=== PATIENT | female | born 1955 | race Caucasian/White ===

== ENCOUNTER 2024-09-15 10:05 | Outpatient (REF) | payer MEDICARE, MEDICAID, SELFPAY | END 2024-09-15 10:06 | disposition home or self-care (01) | LOC: HO.HOSX 10:05 | DX: Z13.89 Encounter for screening for other disorder (principal) ==

== ENCOUNTER 2024-09-16 08:49 | Outpatient (REF) | payer MEDICARE, MEDICAID, SELFPAY ==
--- NOTE | ~2024-09-16 | XR_ITS ---
CLINICAL HISTORY: M79.642 - Pain in left hand 4 view left hand Comparison: None Findings: Bones intact. No dislocations. Periarticular osteophyte formation at the interphalangeal joints of the digits. 1st carpometacarpal joint arthroplasty. No erosions. No radiopaque foreign body. IMPRESSION: 1. No acute findings This document has been electronically signed by: Maryann Castillo MD on 09/16/2024 20:50:46
--- NOTE | ~2024-09-16 | XR_ITS ---
CLINICAL HISTORY: M79.641 - Pain in right hand 4 view right hand Comparison: None Findings: No fractures or dislocations. 1st carpometacarpal joint arthroplasty. No erosions. No radiopaque foreign body. IMPRESSION: 1. No acute findings This document has been electronically signed by: Maryann Castillo MD on 09/16/2024 19:36:16
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
--- OUTSIDE RECORDS SUMMARY | 2024-09-17 09:17 | XMS_ITS | Clinical Summary ---
Author Organization [address] [facility] Address [address] [place] [address] Phone Care Team Providers Care Director Medical Surgical Name Role Phone Vivian Hoffman [employer] Primary Care Provider [phone] Allergies No known active allergies Medications Trelegy Ellipta 100-62.5-25 mcg inhaler TAKE 1 PUFF BY MOUTH EVERY DAY 60 each 5 5 Active Trelegy Ellipta 100-62.5-25 mcg inhaler Inhale 1 puff (100 mcg total) by mouth 1 (one) time each day. 5 Active lamoTRIgine (LaMICtal) 25 mg tablet 1 tablet (25 mg total). 4 Active ipratropium (ATROVENT) 21 mcg (0.03 %) nasal spray USE 1-2 SPRAYS INTO EACH NOSTRIL 3 TIMES A DAY 4 Active citalopram (CeleXA) 20 mg tablet take 1 1/2 tablets (30 mg) by mouth daily Active albuterol 2.5 mg /3 mL (0.083 %) nebulizer solution USE 1 VIAL VIA NEBULIZER EVERY 4 HOURS NEEDED FOR WHEEZING Active albuterol HFA (PROAIR HFA ; PROVENTIL HFA ; VENTOLIN HFA) 90 mcg/actuation inhaler Inhale 2 puffs by mouth. 2 Active naproxen (NAPROSYN) 500 mg tablet Take 1 tablet (500 mg total) by mouth 2 (two) times a day with meals. 4 Active Encounters Date Type Department Care Team Description 07/15/2024 3:45 PM EST Office Visit Pulmonolgy - [facility] [address] [facility] [address] [place] [address] Arvind Jean MD Chronic obstructive pulmonary disease, unspecified COPD type (CMS/HCC) (Primary Dx) from Last 3 Months Immunizations Name Administration Dates Next Due Moderna SARS-CoV-2 COVID-19, mRNA, LNP-S, preservative free 08/29/2020,08/01/2020 Surgical History Surgery Date Site/Laterality Comments BELT ABDOMINOPLASTY 2008 PROCEDURE: HISTORICAL TUMMY TUCK OTHER SURGICAL HISTORY 2009 PROCEDURE: IMPLANT BREAST SILICONE/EQ SECTION PROCEDURE: HISTORICAL DELIVERY APPENDECTOMY PROCEDURE: HISTORICAL APPENDECTOMY ORTHOPEDIC SURGERY PROCEDURE: HISTORICAL ORTHOPEDIC SURGERY BREAST BIOPSY Left PROCEDURE: BX BREAST; PERC NEEDLE CORE W/IMAG GUID; COMMENT: aspiration prior to getting implants Medical History Medical History Date Comments Asthma DX:Asthma Depression DX:Depression Anxiety DX:Anxiety History of PSVT (paroxysmal supraventricular tachycardia) 05/02/2018 DX:History of PSVT (paro xysmal supraventricular tachycardia) RANDAL positive 05/02/2018 DX:RANDAL positive History of hepatitis B 05/02/2018 DX:Histor y of hepatitis B Arthritis 05/02/2018 DX:Arthritis Mild intermittent asthma wit hout complication 05/02/2018 DX:Mild intermittent asthma without complication Family History Medical History Relation Name Comments Lung cancer Brother 1 No Known Problems Brother 2 Diabetes Mother No Known Problems Sister Relation Name Status Comments Brother 1 Brother 2 Alive Father Mother Sister Alive Social History Tobacco Use Types Packs/Day Years Used Date Smoking Tobacco: Former Smokeless Tobacco: Never Alcohol Use Standard Drinks/Week Comments Yes 1 (1 standard drink = 0.6 oz pur e alcohol) Comments Unknown Sex and Gender Information Value Date Recorded Sex Assigned at Not on file Legal Sex Female 6:48 PM EST Gender Identity Not on file Sexual Orientation Not on file Obstetrics History Last Filed Vital Signs Vital Sign Reading Time Taken Comments Blood Pressure 120/60 07/15/2024 4:02 PM EST Pulse 67 07/15/2024 4:02 PM EST Temperature 36.4 ??C (97.6 ??F) 07/15/2024 4:02 PM ES T Respiratory Rate 20 07/15/2024 4:02 PM EST Oxygen Saturation 92% 07/15/2024 4:02 PM EST Inhaled Oxygen Concentration - - Weight 54.4 kg (120 lb) 07/15/2024 4:02 PM EST Height 160 cm (5' 3 ) 07/15/2024 4:02 PM EST Body Mass Index 21.26 07/15/2024 4:02 PM EST Plan of Treatment Upcoming Encounters Date Type Department Care Team (Late st Contact Info) Description 07/18/2025 9:45 AM EST Office Visit Pulmonolgy - [facility] [address] [facility] [address] [place] [id number] Arvind Jean MD [address] [facility] [address] [place] [address] Health Maintenance Due Date Last Done Comments Hepatitis A Vaccines (1 of 2 - Risk 2-dose series) 1972 Hepatitis B Vaccines (1 of 3 - Risk 3-dose series) 2013 Colorectal Cancer Screening: Colonoscopy 05/28/2022 Falls Risk Assessment 05/28/2022 Hepatitis C Screening 05/28/2022 Medicare Annual Wellness Visit 05/28/2022 Osteoporosis Screening (Bone Density Screening) 05/28/2022 Social Influencers of Health Screening 05/28/2022 Cervical Cancer Screening: Pap Smear 12/01/2023 11/30/2022, 06/03/2020, 05/20/2019 COVID-19 Vaccine ( season) 2024 06/02/2021, 08/29/2020, 08/01/2020 Influenza Vaccine (#1) 2024 08/07/2017 Breast Cancer Screening 12/27/2024 12/27/2022 Depression Screening 06/28/2025 06/28/2024 Cholesterol Screening (Lipid Panel) 11/20/2028 11/21/2023, 11/21/2023, 12/30/2021, Additional history exists DTaP,Tdap,and Td Vaccines (2 - Td or Tdap) 03/28/2029 03/28/2019 Pneumococcal Vaccine: 50+ Years Completed 07/24/2020, 03/28/2019 Zoster Vaccines Completed 02/11/2021, 11/06/2020 RSV Immunization Patients 60+ Years Old Completed 06/13/2023 HIB Vaccines Aged Out No longer eligi ble based on patient's age to complete this topic HPV Vaccines Aged Out No longer eligi ble based on patient's age to complete this topic IPV Vaccines Aged Out No longer eligi ble based on patient's age to complete this topic MMR Vaccines Aged Out No longer eligi ble based on patient's age to complete this topic Meningococcal ACWY Vaccine Aged Out N o longer eligible based on patient's age to complete this topic Meningococcal B Vacine Aged Out No lo nger eligible based on patient's age to complete this topic RSV Immunization Patients Under 20 months Aged Out No longer eligible based on patient's age to complete this topic Varicella Vaccines Aged Out No longer eligible based on patient's age to complete this topic Procedures Procedure Name Priority Date/Time Associated Diagnosis Comments DIAGNOSTIC MAMMOGRAPHY INCLUDING CAD BILATERAL Routine 12/27/2022 3:20 PM EDT Encounter for gynecological examination (general) (routine) without abnormal findings Encounter for other screening for malignant neoplasm of breast Breast implant status PAP SMEAR Routine 11/30/2022 from Last 3 Months or Most Recently Relevant to Health Maintenance Results * DIAGNOSTIC MAMMOGRAPHY INCLUDING CAD BILATERAL (12/27/2022 3:20 PM EDT) Anatomical Region Laterality Modality Mammography 11/30/2022 2:58 PM EDT Narrative 12/27/2022 4:30 PM EDT This is a summary report. The complete report is available in the patient's medical record. If you cannot access the medical record, please contact the sending organization for a detailed fax or copy. Exam: Diagnostic mammogram and right breast ultrasound History: Palpable right breast lump at the 2-3 o'clock position 6 cm from the nipple. ??Possible deformed implant. ??History of bilateral saline implants in 2009. ??History of a benign left excisional biopsy in 1998. Comparison: Mammography 04/09/2021 and as far back as 02/23/2012 Findings: Bilateral full-field digital diagnostic mammography was performed with tomosynthesis and interpreted with computer-aided detection. ??Implant and implant displaced views performed. Breast parenchyma is composed of scattered fibroglandular densities. ??No new suspicious mass, architectural distortion, or suspicious calcifications. ??Bilateral saline implants are intact and have similar appearance to the prior exam. Patient delineated the palpable right breast lump at the 2 o'clock position, 6 cm from the nipple. ??Sonography shows no solid or cystic lesion. Impression: No mammographic or sonographic correlate for the palpable right breast lump. ??Bilateral intact saline implants which have stable appearance. ??Further management of the palpable abnormality should be clinically based. No new mammographic evidence of malignancy in either breast. BI-RADS 2-benign Procedure Note Edie Pichardo MD - 07/25/2023 This is a summary report. The complete report is available in thepatient's medical record. If you cannot access the medical record, pleasecontact the sending organization for a detailed fax or copy. Exam: Diagnostic mammogram and right breast ultrasound History: Palpable right breast lump at the 2-3 o'clock position 6 cm fromthe nipple. Possible deformed implant. History of bilateral salineimplants in 2009. History of a benign left excisional biopsy in 1998. Comparison: Mammography 04/09/2021 and as far back as 02/23/2012 Findings: Bilateral full-field digital diagnostic mammography was performed withtomosynthesis and interpreted with computer-aided detection. Implant andimplant displaced views performed. Breast parenchyma is composed of scattered fibroglandular densities. Nonew suspicious mass, architectural distortion, or suspiciouscalcifications. Bilateral saline implants are intact and have similarappearance to the prior exam. Patient delineated the palpable right breast lump at the 2 o'clockposition, 6 cm from the nipple. Sonography shows no solid or cysticlesion. Impression: No mammographic or sonographic correlate for the palpable right breastlump. Bilateral intact saline implants which have stable appearance.Further management of the palpable abnormality should be clinicallybased. No new mammographic evidence of malignancy in either breast. BI-RADS 2-benign Sol Alejo CNM IMG BI PROCEDURES Final Resul t * Pap smear (11/30/2022) 11/30/2022 Narrative HISTORICAL TESTING LAB RESULTING AGENCY - 12/09/2022 10:40 AM EDT [id number] THINPREP PAP, IMAGED: RARE ATYPICAL SQUAMOUS CELLS OF UNDETERMINED SIGNIFICANCE (ASCUS) . CHELSEA KENNEDY(ASCP) (CASE SCREENED 12 08 2022) AMMY COPELAND M.D. , PATHOLOGIST (CASE ELECTRONICALLY SIGNED 12 09 2022) RESULT OF APTIMA HIGH RISK HPV ASSAY: HIGH RISK HPV: ??POSITIVE (SEROTYPES 16,18,31,33,35,39,45,51,52,56,58,59,66,68) RESULTS OF APTIMA HPV 16 AND 18/45 GENOTYPE ASSAY: HPV 16: ??NEGATIVE HPV 18/45: ??NEGATIVE COMPLETED ON 2022-12-05 ADEQUACY: SATISFACTORY ENDOCERVICAL/TRANSFORMATION ZONE COMPONENT PRESENT. SOURCE: THINPREP PAP HPV ANY DX: ??REFLEX 16 AND 18, CERVICAL, IMAGED CLINICAL INFORMATION: HPV ANY DIAGNOSIS. MENOPAUSE, PAP HX 05/20/2019 PAP SMEAR ASC-H HR HPV, 07/16/19 - COLPO BX NEG, PLAN REPEAT PAP IN 1 YR, 05/2020 PAP ??- NEG CYTOLOGY, + HPV, [[id number]] Sol Alejo [facility] CYTOLOGY ORDERABLES Final Result HISTORICAL TESTING LAB RESULTING AGENCY from Last 3 Months or Most Recently Relevant to Health Maintenance Insurance MEDICAID - [place] [employer] MEDICARE ADVANTAGE Care Teams Director Medical Surgical Relationship Specialty Start Date End Date Vivian Hoffman NP [facility] [place] [address] PCP - General Family Medicine 11/17/21
--- OUTSIDE RECORDS SUMMARY | 2024-09-17 09:17 | XMS_ITS | Clinical Summary ---
Author Organization [facility] Address [address] [place] [address] Care Team Providers Care Photo Intern Name Role Phone Vivian Hoffman [facility] Primary Care Provider [phone] Source Comments PLEASE NOTE, if this patient is a minor, it may be UNLAWFUL to discuss sensitive information that is contained in these records (such as FAMILY PLANNING, MENTAL HEALTH or SUBSTANCE ABUSE) with the minor patient's parent or other person without the patient's specific authorization.[facility] Allergies No known active allergies Medications nebulizer and compressorIndica tions:COPD exacerbation ([facility]) Use with duoneb solution. Lifetime use: COPD exacerbation ([facility]) [J44.1] 1 Each 2 Active nebulizer accessoriesIndic ations:COPD exacerbation ([facility]) Use with duoneb solution. Lifetime use: COPD exacerbation ([facility]) [J44.1] 1 Each 11 2 Active citalopram (CELEXA) 20 mg tabletIndication s:Anxiety and depression TAKE 1 TABLET BY MOUTH EVERY DAY FOR DEPRESSION 90 Tablet 1 3 Active albuterol (PROVENTIL) 2.5 mg /3 mL (0.083 %) nebulizer solutionIndicati ons:Chronic obstructive pulmonary disease, unspecified COPD type ([facility]) USE 1 VIAL VIA NEBULIZER EVERY 4 HOURS NEEDED FOR WHEEZING 50 Each 2 4 Active fluticasone-umec lidinum-vilanter ol (TRELEGY ELLIPTA) 100-62.5-25 mcg inhalerIndicatio ns:Chronic obstructive pulmonary disease, unspecified COPD type ([facility]) Inhale 1 Puff into the lungs daily. 60 Each 2 4 Active sucralfate (CARAFATE) 100 mg/mL suspensionIndica tions:Epigastric pain Take 10 mL by mouth 4 (four) times daily before meals and nightly 414 mL 1 4 Active calcium carbonate-vitami n D3 500 mg-10 mcg (400 unit) tabletIndication s:Osteopenia, unspecified location Take 1 Tablet by mouth 2 (two) times daily For bone 60 Tablet 5 4 Active traMADoL (ULTRAM) 50 mg tabletIndication s:RUQ pain Take 1 Tablet by mouth every 8 (eight) hours as needed for pain 20 Tablet 4 Active meloxicam (MOBIC) 15 mg tabletIndication s:Joint pain in fingers of right hand TAKE 1 TABLET BY MOUTH EVERY DAY NEEDED FOR PAIN 30 Tablet 2 4 Active traZODone (DESYREL) 100 mg tabletIndication s:Primary insomnia TAKE 1 TABLET BY MOUTH NIGHTLY AT BEDTIME NEEDED FOR SLEEP 90 Tablet 1 5 Active mirabegron ER (MYRBETRIQ) 25 mg [id number]: Mixed incontinence Take 1 Tablet by mouth once daily For urine incontinence 30 Tablet 2 5 Active Active Problems Problem Noted Date Diagnosed Date Inflammation of sacroiliac joint ([facility] V24) 06/28/2024 Supraventricular tachycardia ([facility]) 5 Tremors of nervous system 06/28/2024 Pancreatic duct dilated ([facility]) 02/18/2024 Overview (06/28/2024): -pancreatic duct dilation: Saw vero Barker on 02/2024, recc no txt for now. Redo CT scan of abdomen or MRCP in 1 year (around 02/2025): for surveillance. Fibroid uterus 02/10/2022 Overview (02/10/2022): 02/02/2022: Ct of abd at [facility]: FINDINGS: [...] were followed. Granuloma of liver 06/19/2021 Overview (11/23/2023): 09/19/2022: [facility]: per GI note: Impression and [...] Follow up as necessary. Osteopenia 05/25/2021 Overview (05/25/2021): 04/09/2021: [facility]: Bone desity: osteopenia. COPD (chronic obstructive pulmonary disease) ( [facility]) 03/30/2019 Overview (03/17/2022): Had PFT on 2021: showed COPD. Mixed incontinence 03/07/2018 History of PSVT (paroxysmal supraventricular tachycardia) w/ ablation 11/16/2017 Overview (11/16/2017): Per records from [facility] Dr. Jane 03/26/13 - 48-hr Holter monitor: predominantly NSR, episodes of sinus tachy & clayton, isolated VF, Svt max 5 beats, no vtach no sinus pauses RANDAL positive 11/15/2017 Overview (11/16/2017): 04/07/14 RANDAL positive 1:1280 speckled pattern 05/09/14 - RANDAL neg 04/15/16 - RANDAL positive 1:160 speckled 11/04/16 - RANDAL negative 04/21/17 - CCP positive; RANDAL neg 08/28/17 - RANDAL positive 1:80 (low Ab level), Homogeneous History of hepatitis B 10/07/2017 Primary osteoarthritis involving multiple joints 10/06/2017 Overview (09/09/2018): 09/03/18 - Evaluated by Rheum Dr. Garcia. Pt has degenerative OA in multiple joint, most bothersome in the hands. She doesn't have RA and her RF and CCP were negative in Jul 2017. Can try Tylenol 650 mg PRN pain. F/U PRN. Anxiety and depression 10/06/2017 Mild intermittent asthma without complication ([facility]) 10/06/2017 Overview (11/16/2017): 04/21/17 - PFTS = moderately severe obstruciton Osteoarthritis of right knee Resolved Problems Problem Noted Date Diagnosed Date Resolved Date Hepatitis B 10/06/2017 10/07/2017 Encounters Date Type Department Care Team Description 06/28/2024 9:00 AM EST Office Visit [address] [address] Vivian Hoffman, ALLEGRA Tremors of nervous system (Primary Dx); Memory problem; Blurred vision, bilateral; Mixed incontinence; Pancreatic duct dilated; Chronic obstructive pulmonary disease, unspecified COPD type ([facility]); History of tobacco use 06/28/2024 Travel from Last 3 Months Immunizations Immunization Administration Dates Next Due Flu, Preservative Free 08/07/2017 Moderna COVID-19 Vaccine, re d cap blue label, 12+ Primary Series 06/02/2021,08/29/2020,08/01/2020 PNEUMOCOCCAL CONJUGATE PCV 13 03/28/2019 PNEUMOCOCCAL POLYSACCHARIDE PPV23 07/24/2020 RSV (Arexvy), Recombinant, P rotein Subunit Rsvpref, Adjuvant Reconstituted, 0.5 Ml, Pf 06/13/2023 TDAP 03/28/2019 ZOSTER VACCINE, RECOMBINANT (SHINGRIX) ,11/06/2020 Family History Medical History Relation Name Comments Cancer Brother lung cancer dec eased 50's Cancer Father prostate? Alzheimer's Disease Maternal Grandmother Diabetes Mother Psoriasis Mother Diabetes Sister Relation Name Status Comments Brother lung cancer Father prostate cancer Maternal Grandmother Mother hepatitis B Sister Alive Social History Tobacco Use Types Packs/Day Years Used Date Smoking Tobacco: Former Cigarettes 2 15 1 985 - 1999 Smokeless Tobacco: Never Tobacco Cessation:Counseling Given: Not Answered Alcohol Use Standard Drinks/Week Comments Yes 0 (1 standard drink = 0.6 oz pur e alcohol) sometimes Social Connections Answer Date Recorded Connectedness 0 02/29/2024 Financial Resource Strain Answer Date R ecorded Financial Resource Strain 0 2018 Stress Answer Date Recorded Stress 0 02/05/2019 Physical Activity Answer Date Recorded Physical Activity 0 02/05/2019 Food Insecurity Answer Date Recorded Food 0 03/14/2024 Transportation Needs Answer Date Record ed Transportation 0 02/05/2019 Housing Stability Answer Date Recorded Housing 0 02/05/2019 Safety and Environment Answer Date Emory rded Safety 0 02/05/2019 Utilities Answer Date Recorded Utilities 0 02/05/2019 Employment Answer Date Recorded Stress 0 02/29/2024 Comments No Sex and Gender Information Value Date Recorded Sex Assigned at Female 10/03/2017 6:35 AM PDT Legal Sex Female 11:47 AM PDT Gender Identity Female 10/03/2017 6:35 AM PDT Sexual Orientation Straight 10/06/2017 6: 32 AM PDT 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 Not on file Not on file Last Filed Vital Signs Vital Sign Reading Time Taken Comments Blood Pressure 108/62 06/28/2024 8:59 AM EST Pulse 60 06/28/2024 8:59 AM EST Temperature 36.5 ??C (97.7 ??F) 06/28/2024 8:59 AM ES T Respiratory Rate 16 06/28/2024 8:59 AM EST Oxygen Saturation 98% 02/28/2024 2:09 PM EDT Inhaled Oxygen Concentration - - Weight 53.5 kg (118 lb) 02/28/2024 2:09 PM EDT Height 157.5 cm (5' 2 ) 02/28/2024 2:09 PM EDT Body Mass Index 21.58 02/28/2024 2:09 PM EDT Plan of Treatment Upcoming Encounters Date Type Department Care Team (Late st Contact Info) Description 09/27/2024 9:00 AM EDT [facility] Visit [facility] [address] [place] [address] Clare Ramirez PA-C [address] [place] [address] Health Maintenance Due Date Last Done Comments Dental Perio Charting [address] CT Colonography 1998 FIT/gFOBT 1998 Fecal DNA 1998 Flexible Sigmoidoscopy 1998 Dental Prophy 10/20/2022 10/18/2021 [id number] ( season) 2024 06/02/2021, 08/29/2020, 08/01/2020 Depression Monitoring 09/26/2024 06/28/2024 , 02/28/2024, 11/25/2021, Additional history exists Falls Prevention 11/20/2024 11/21/2023, 11/06/2020 Medicare Annual Wellness Visit 11/20/2024 0 11/21/2023, 11/06/2020, 03/28/2019 Hypertension Screening (#1) 06/28/2025 Tobacco Screening 06/28/2025 06/28/2024 Breast Cancer Screening (Mammogram) 12/10/2025 12/11/2023, 04/09/2021, 06/05/2017 Diabetes Screening 11/20/2026 11/21/2023, 0 11/21/2023, 12/30/2021, Additional history exists Lipid Screening 11/20/2028 11/21/2023, 12/17, 12/03/2020 Imm-DTaP/Tdap/Td (2 - Td or Tdap) 03/28/2029 019 Colonoscopy 03/10/2032 03/10/2022, 03/10/2022 Colorectal Cancer Screening 03/10/2032 Imm-Influenza Discontinued 08/07/2017 Hepatitis C Screening Completed 03/28/2019 Imm-Pneumococcal 65+ Completed 07/24/2020, 03/28/20 Imm-Zoster, Recombinant Completed 02/11/2021, 11/06 Bone Density Screening Completed 04/09/2021 Alcohol and Drug Screen Completed 06/28/19, 02/28/2024, 11/25/2021, Additional history exists Procedures Procedure Name Priority Date/Time Associated Diagnosis Comments HEALTH HISTORY SCANNED DOCUMENT 07/11/2024 3:00 AM EST RFLX - REFLEXIVE URINE CULTURE Routine 06/28/2024 9:56 AM EST C TRACHOMATIS/N GONORRHOEAE RNA,TMA Routine 06/28/2024 9:56 AM EST Mixed incontinence URINALYSIS, COMPLETE W/REFLEX TO CULTURE Routine 06/28/2024 9:56 AM EST Mixed incontinence REFERRAL FOR MAMMOGRAM Routine 12/11/2023 3:00 AM EDT Breast cancer screening by mammogram HGBA1C W/MPG Routine 11/21/2023 4:30 PM EDT Routine general medical examination at a health care facility Non-seasonal allergic rhinitis, unspecified trigger LIPID PANEL Routine 11/21/2023 4:30 PM EDT Routine general medical examination at a health care facility Non-seasonal allergic rhinitis, unspecified trigger HISTORIC COLONOSCOPY 03/10/2022 3:00 AM EDT Full PROPHYLAXIS - ADULT Routine 10/18/2021 2:20 PM EDT Gingivitis, chronic, plaque induced REFERRAL FOR BONE DENSITY TESTING Routine 04/09/2021 3:00 AM EDT Screening for osteoporosis HEPATITIS A,B,C PANEL Routine 03/28/2019 4:34 PM EDT Need for hepatitis C screening test from Last 3 Months or Most Recently Relevant to Health Maintenance Results * HEALTH HISTORY SCANNED DOCUMENT (07/11/2024 3:00 AM EST) 07/11/2024 3:00 AM EST [facility] Provider Default SCAN OTHER ORDERS Final Re sult * C TRACHOMATIS/N GONORRHOEAE RNA,TMA (06/28/2024 9:56 AM EST) CHLAMYDIA TRACHOMATIS RNA, TMA NOT DETECTED NOT DETECTED [email or web address] [facility] NEISSERIA GONORRHOEAE RNA, TMA NOT DETECTED NOT DETECTED [email or web address] [facility] COMMENT [email or web address] [facility] Urine Urine specimen / Unknown 06/28/2024 9:56 AM EST 06/28/2024 9:57 AM EST Narrative [email or web address] [facility] - 06/29/2024 7:53 PM EST FASTING:NO The analytical performance characteristics of this assay, when used to test SurePath(TM) specimens have been determined by [employer]. The modifications have not been cleared or approved by the FDA. This assay has been validated pursuant to the CLIA regulations and is used for clinical purposes. For additional information, please refer to https://education.Kids Movie/faq/EQC176 (This link is being provided for information/ educational purposes only.) Vivian Hoffman [facility] - NO BLOOD DRAW Final Resu lt [email or web address] [address] [address], [email or web address] [address] * URINALYSIS, COMPLETE W/REFLEX TO CULTURE (06/28/2024 9:56 AM EST) COLOR YELLOW YELLOW [email or web address] [facility] APPEARANCE CLEAR CLEAR [email or web address] [facility] SPECIFIC GRAVITY 1.023 1.001 - 1.035 [email or web address] [facility] URINE PH 6.5 5.0 - 8.0 [email or web address] [facility] GLUCOSE NEGATIVE NEGATIVE [email or web address] [facility] BILIRUBIN NEGATIVE NEGATIVE [email or web address] [facility] KETONES NEGATIVE NEGATIVE [email or web address] [facility] OCCULT BLOOD NEGATIVE NEGATIVE [email or web address] [facility] URINE PROTEIN NEGATIVE NEGATIVE [email or web address] [facility] NITRITE NEGATIVE NEGATIVE [email or web address] [facility] LEUKOCYTE ESTERASE NEGATIVE NEGATIVE [email or web address] [facility] URINE LEUKOCYTES NONE SEEN < OR = 5 [id number] [facility] RBC NONE SEEN < OR = 2 [id number] [facility] SQUAMOUS EPITHELIAL CELLS NONE SEEN < OR = 5 [email or web address] [facility] BACTERIA NONE SEEN NONE SEEN [facility] HYALINE CAST NONE SEEN NONE SEEN [email or web address] [facility] SEE NOTE See Below [email or web address] [facility] Comment: This urine was analyzed for the presence of WBC, RBC, bacteria, casts, and other formed elements. Only those elements seen were reported. Urine Urine specimen / Unknown 06/28/2024 9:56 AM EST 06/28/2024 9:57 AM EST Narrative [email or web address] [facility] - 06/29/2024 7:53 PM EST FASTING:NO Viivan [facility] - NO BLOOD DRAW Edited Res ult - Final Performing Organization Address [facility] de Phone Number [email or web address] [address] [address], [email or web address] [address] * RFLX - REFLEXIVE URINE CULTURE (06/28/2024 9:56 AM EST) REFLEXIVE URINE CULTURE See Below [facility] Comment:NO CULTURE INDICATED 06/28/2024 9:56 AM EST 06/28/2024 9:57 AM EST Narrative [email or web address] [facility] - 06/29/2024 7:53 PM EST FASTING:NO Vivian [facility] - NO BLOOD DRAW Edited Res ult - Final Performing Organization Address [facility] Co de Phone Number [email or web address] [address] [address], [email or web address] [address] * REFERRAL FOR MAMMOGRAM (12/11/2023 3:00 AM EDT) 12/11/2023 3:00 AM EDT Vivian DEANP IMG RFL MAMMO Edited Result - Final * HGBA1C W/MPG (11/21/2023 4:30 PM EDT) Pathologist [facility] HEMOGLOBIN A1C 5.4 <5.7 % of total Hgb [facility] Comment: For the purpose of screening for the presence of diabetes: <5.7% ? Consistent with the absence of diabetes 5.7-6.4% ?Consistent with increased risk for diabetes ?(prediabetes) > or =6.5% ??Consistent with diabetes This assay result is consistent with a decreased risk of diabetes. Currently, no consensus exists regarding use of hemoglobin A1c for diagnosis of diabetes in children. According to [place] Diabetes Association (ADA) guidelines, hemoglobin A1c <7.0% represents optimal control in non- diabetic patients. Different metrics may apply to specific patient populations. Standards of Medical Care in Diabetes(ADA). ?? MEAN PLASMA GLUCOSE 115 mg/dL (calc) [facility] Blood Blood / Unknown 11/21/2023 4 :30 PM EDT 11/21/2023 4:30 PM EDT Vivian DEAN[facility] LAB - BLOOD DRAW Edited Result - Final opinions.h [address] [place] [id number], [facility] [address] [place] [phone] * (ABNORMAL) LIPID PANEL (11/21/2023 4:30 PM EDT) Pathologist [facility] CHOLESTEROL, TOTAL 177 <200 mg/dL [facility] HDL CHOLESTEROL 60 > OR = 50 mg/dL [facility] TRIGLYCERIDES 80 <150 mg/dL [facility] LDL-CHOLESTEROL 100(H) 99 mg/dL (calc) [facility] Comment: Reference range: <100 Desirable range <100 mg/dL for primary prevention; ?? <70 mg/dL for patients with CHD or diabetic patients with > or = 2 CHD risk factors. LDL-C is now calculated using the Kumar-Caldwell calculation, which is a validated novel method providing better accuracy than the Friedewald equation in the estimation of LDL-C. Kumar SS et al. ANNETTE. 2013;310(49): 8899-0127 (http://education.Automated Insights/faq/LTQ006) CHOL/HDLC RATIO 3.0 <5.0 (calc) [facility] NON-HDL CHOLESTEROL 117 <130 mg/dL (calc) [facility] [employer] Comment: For patients with diabetes plus 1 major ASCVD risk factor, treating to a non-HDL-C goal of <100 mg/dL (LDL-C of <70 mg/dL) is considered a therapeutic option. Blood Blood / Unknown 11/21/2023 4 :30 PM EDT 11/21/2023 4:30 PM EDT Vivian DIN[facility] LAB - BLOOD DRAW Final Result [email or web address] [address] [address], [email or web address] [address] * HISTORIC COLONOSCOPY (03/10/2022 3:00 AM EDT) 03/10/2022 3:00 AM EDT Shannan Mc PA-C PROCEDURES Final Res ult * REFERRAL FOR BONE DENSITY TESTING (04/09/2021 3:00 AM EDT) 04/09/2021 3:00 AM EDT Vivian DINH IMG RFL DXA Edited Result - Final * (ABNORMAL) HEPATITIS A,B,C PANEL (03/28/2019 4:34 PM EDT) HEPATITIS B SURFACE ANTIBODY NEGATIVE NEGATIVE [facility] HEPATITIS B SURFACE ANTIGEN NEGATIVE NEGATIVE [facility] Comment: Over the counter supplements containing high doses of biotin may interfere with this assay. ??If interference is suspected, patients shoud be retested after refraining from biotin supplements for 72 hours. HEPATITIS C VIRUS DIAGNOSTIC NEGATIVE NEGATIVE [facility] HEPATITIS B CORE ANTIBODY NEGATIVE NEGATIVE [facility] HEPATITIS A ANTIBODY TOTAL POSITIVE(A) NEGATIVE [facility] Comment: Over the counter supplements containing high doses of biotin may interfere with this assay. ??If interference is suspected, patients shoud be retested after refraining from biotin supplements for 72 hours. Blood specimen (specimen) Blood / Unknown 03/28/2019 4:34 PM EDT 03/28/2019 4:42 PM EDT Narrative [facility] - 03/28/2019 7:45 PM EDT [employer] [address] Jewel Staker - Giuliana Partida MD PT ID [id number] ORD# [id number] Shannan Mc PA-C LAB - BLOOD DRAW Edited R esult - Final [address] [address], [place] [phone] from Last 3 Months or Most Recently Relevant to Health Maintenance Insurance AETNA MEDICARE AETNA [facility] [place] Care Teams Photo Intern Relationship Specialty Start Date End Date Vivian Hoffman FNP [address] [place] [id number] PCP - General Internal Medicine 08/20/19
== END 2024-09-16 08:50 | disposition home or self-care (01) ==
LOC: HO.HOSX 08:49
DX: M79.641 Pain in right hand (principal); M79.642 Pain in left hand; M19.041 Primary osteoarthritis, right hand; M19.042 Primary osteoarthritis, left hand
CPT/HCPCS: 73130; 99202

== ENCOUNTER 2024-09-16 08:58 | Outpatient (AMB) | payer MEDICARE, MEDICAID, SELFPAY ==
--- NOTE | 2024-09-16 09:08 | MHC.OFFVIS ---
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 States her right is worse. States pain is mostly in her thumb, index and middle finger. Describes pain as constant, and gets better when she sits on her hands and puts her hands by the heater. She is currently taking celebrex which was RX by her PCP Dr Westfall. States her index finger at times turns white and goes numb. Denies locking of any finger. EMG done many years ago. 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 States her right is worse. States pain is mostly in her thumb, index and middle finger. Describes pain as constant, and gets better when she sits on her hands and puts her hands by the heater. She is currently taking celebrex which was RX by her PCP Dr Westfall. States her index finger at times turns white and goes numb. Denies locking of any finger. EMG done many years ago. Hx of CTR ( doesn't recall which hand it was). No active numbness or tingling at this time. 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 Neuro: Normal sensation of the tips of all digits of the bilateral hands at this time Vascular: Cap refill brisk Pain: No tenderness to palpation of the PIP, DIP joints of the fingers of bilateral hands Patient does report pain in these areas with range of motion of bilateral hands, worst in the index and middle fingers of the right hand ROM: Patient was able to make a closed fist and extend all digits of bilateral hands fully Skin: No lacerations or abrasions. General: No ecchymosis, erythema, or evidence of infection. Psych: Appears grossly normal Affect normal Attitude cooperative Results Reviewed Results Reviewed: X-rays obtained in the office today and independently reviewed by me, Rj Brown PA-C, demonstrate moderate degenerative changes of the DIP and PIP joints of bilateral hands consistent with osteoarthritis. Assessment & Plan Assessment & Plan (1) Arthritis of finger of both hands: Code(s): M19.041 - Primary osteoarthritis, right hand; M19.042 - Primary osteoarthritis, left hand Category: Medical Plan 1. osteoarthritis of the IP and PIP joints of bilateral hands Patient was educated about this condition Patient is educated about the treatment options available At this time, patient states she would like to proceed with conservative management with occupational therapy, conservative pain management measures Patient states she is not interested in injections or any surgical intervention at this time If conservative management measures prove ineffective, patient can call us for reassessment and discussion of potential injection or surgical intervention if indicated Patient will follow-up as needed with any acute concerns Orders: Orders XR hand LT min 3V Today M79.642 - Pain in left hand XR hand RT min 3V Today M79.641 - Pain in right hand OT Evaluation and Treatment Today M19.041 - Primary osteoarthritis, right hand, M19.042 - Primary osteoarthritis, left hand Coding Level of Care Code New Pt Level 3 (19748) Diagnoses Arthritis of finger of both hands M19.041; M19.042
[2024-09-16 09:09] VITALS: BMI 21.3
== END 2024-09-16 09:39 | disposition home or self-care (01) ==
LOC: HO.HOS 08:59
PROVIDERS: PCP Internal Medicine
DX: M19.041 Primary osteoarthritis, right hand (principal); M19.042 Primary osteoarthritis, left hand
CPT/HCPCS: 99203

== ENCOUNTER → 2024-09-16 09:00 | Outpatient (BNV) | payer MEDICARE, MEDICAID, SELFPAY | PROVIDERS: Visit Provider Radiology Diagnostic Radiology | DX: M79.642 Pain in left hand (principal); M79.641 Pain in right hand | CPT/HCPCS: 73130 ==

== ENCOUNTER 2024-10-21 08:07 | Outpatient (REF) | payer MEDICARE, MEDICAID, SELFPAY ==
--- NOTE | ~2024-10-21 | XR_ITS ---
CLINICAL HISTORY: M17.11 - Unilateral primary osteoarthritis, right knee 3 view right knee Comparison: None Findings: No fractures or dislocations. Moderate degenerative disease with joint space narrowing and tricompartmental spurring. No joint effusion. No radiopaque foreign body. IMPRESSION: 1. No acute findings. Moderate DJD. This document has been electronically signed by: Ezra Perry MD on 10/21/2024 22:44:00
--- OUTSIDE RECORDS SUMMARY | 2024-10-21 08:14 | XMS_ITS | Clinical Summary ---
Author Organization [facility] Address [address] [place] [address] Care Team Providers Care Crisis Specialist Name Role Phone Unavailable Primary Care Provider Unavailabl e Allergies No known active allergies Medications traZODone (DESYREL) 50 MG tablet Take 50 [...] hycardia) 11/16/2017 Overview (05/13/2024): Per records from [facility] Dr. Jane 03/26/13 - 48-hr [...] pain 11/11/2010 Mass of breast 11/11/2010 Immunizations Immunization Administration Dates Next Due Covid-19 mRNA Primary [...] Years Used Date Smoking Tobacco: Never Assessed Comments Unknown Sex and Gender Information Value Date Recorded Sex Assigned at Not on file Legal Sex Female 1:56 PM EDT Gender Identity Not on file Sexual Orientation [...]
--- OUTSIDE RECORDS SUMMARY | 2024-10-21 08:14 | XMS_ITS | Clinical Summary ---
Author Organization [facility] Address [address] [place] [address] Care Team Providers Care Rotor Blade Installer Name Role Phone Vivian Hoffman NP Primary Care Provider [phone] Social History Tobacco Use Types Packs/Day Years Used Date Smoking Tobacco: Never Assessed Sex and Gender Information Value Date Recorded Sex Assigned at Female 11/17/2021 2:59 PM EDT Gender Identity Not on file Sexual Orientation Not on file Job Start Date Occupation Industry Not on file Not on file Not on file Plan of Treatment Not on file Care Teams Rotor Blade Installer Relationship Specialty Start Date End Date Vivian Hoffman NP [address] [place] [address] PCP - General Family Medicine 11/17/21
--- OUTSIDE RECORDS SUMMARY | 2024-10-21 08:14 | XMS_ITS | Clinical Summary ---
Author Organization [facility] Address [address] [place] [address] Phone Care Team Providers Care Government Relations Director Name Role Phone Vivian Hoffman FREIGHT CALLER Primary Care Provider [phone] Allergies No known active allergies Medications [...] times a day with meals. 4 Active Immunizations Name Administration Dates Next Due Moderna [...] 9:45 AM EST Office Visit Pulmonolgy - Dr[facility] [address] [facility] [address] [place] [phone] Arvind Jean MD [address] [facility] [address] [place] [address] Health Maintenance Due Date Last Done Comments [...] Vaccine ( season) 2024 06/02/2021, 08/29/2020, 08/01/2020 Breast Cancer Screening 12/27/2024 12/27/2022 Influenza Vaccine (Season Ended) 2025 08/07/2017 Depression Screening 06/28/2025 06/28/2024 Cholesterol Screening (Lipid Panel) 11/20/2028 11/21/2023, 11/21/2023, 12/30/2021, Additional history exists DTaP,Tdap,and Td Vaccines (2 - Td or Tdap) 03/28/2029 03/28/2019 Pneumococcal Vaccine: 50+ Years Completed 07/24/2020, 03/28/2019 Zoster Vaccines Completed 02/11/2021, 11/06/2020 RSV Immunization Adult Patients Completed 06/13/2023 HIB Vaccines Aged Out No [...] age to complete this topic Meningococcal B Vaccine Aged Out No l onger eligible based on patient's age to complete [...] in either breast. BI-RADS 2-benign [facility] IMG BI PROCEDURES Final Resul t * Pap smear (11/30/2022) 11/30/2022 Narrative HISTORICAL TESTING LAB RESULTING AGENCY - 12/09/2022 10:40 AM EDT [id number] THINPREP PAP, IMAGED: RARE ATYPICAL SQUAMOUS CELLS OF UNDETERMINED SIGNIFICANCE (ASCUS) . KAMINI JIMÉNEZ , CHELSEA(ASCP) (CASE SCREENED 12 08 2022) AMMY COPELAND [...] NEG CYTOLOGY, + HPV, [Z01.419] [facility] LAB CYTOLOGY ORDERABLES Final Result HISTORICAL TESTING LAB RESULTING AGENCY from Last 3 Months or Most Recently Relevant to Health Maintenance Insurance [place]ICAID - [place] AETNA MEDICARE ADVANTAGE Care Teams Government Relations Director Relationship Specialty Start Date End Date Vivian Hoffman NP [address] [place] [address] PCP - General Family Medicine 11/17/21
== END 2024-10-21 08:08 | disposition home or self-care (01) ==
LOC: HO.HOSX 08:07
DX: M17.11 Unilateral primary osteoarthritis, right knee (principal)
CPT/HCPCS: 20610; 73562; 99212; J1010; J2003

== ENCOUNTER 2024-10-21 09:25 | Outpatient (AMB) | payer MEDICARE, MEDICAID, SELFPAY ==
[2024-10-21 09:27] VITALS: BMI 21.3
--- NOTE | 2024-10-21 09:27 | MHC.OFFVIS ---
Vital Signs 10/21/24 09:27 Height 5 ft 3 in Weight 120 lb BMI 21.3 Intake Visit Reasons: Newprob-Right knee pain/arthritis Intake Note: Charan is a 68 year old female who presents today for a new problem visit with complaints of right knee pain that started years ago. Patient reports the pain is located all around the knee. Patient shares pain worsens when bending at the knee, walking, sitting, standing, or using stairs. Patient also reports clicking, popping, and giving away? Has tried cortisones injections, last one done about 2 years ago. Denies prior injuries or surgeries to the knee. Allergies seasonal Allergy (Unknown, Uncoded 10/21/24 09:28) runny nose HPI HPI Newprob-Right knee pain/arthritis: Details: Charan is a 68 year old female who presents today for a new problem visit with complaints of right knee pain that started years ago. Patient reports the pain is located all around the knee. The patient reports that this pain is primarily on the anterior aspect of the right knee. Patient reports that she has been previously told that her arthritis is primarily located behind her kneecap? Patient shares pain worsens when bending at the knee, walking, sitting, standing, or using stairs. Patient also reports clicking, popping, and giving away. Has tried cortisones injections with good relief, last one done about 2 years ago. Denies prior injuries or surgeries to the knee. FOR[facility]LY [facility], [facility] Medical History (Updated 10/21/24 @ 10:37 by NADIRA Zambrano) Carpal tunnel syndrome, bilateral Social History (Updated 09/16/24 @ 09:16 by Adrienne Myers 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 Review of Systems Const All systems reviewed & are unremarkable except as noted in HPI and below Physical Exam Vital Signs: BMI result Body Mass Index 21.3 Extrem Other: On inspection, there is no visible deformity of the right knee No edema, erythema, ecchymosis noted No lacerations, abrasions, open areas No evidence of infection Patient reports mild tenderness to palpation in the patella, peripatellar region, No tenderness to palpation of the medial and lateral joint line, posterior knee Patient is able to extend the left knee to 0 degrees and flex to approximately 120 degrees without difficulty No ligamentous laxity noted Distal sensation intact Capillary refill brisk Negative Andrew's Positive patellar grind Office Procedures AMB Joint Injection/Aspiration Joint Injection/Aspiration Primary Site: right knee Prep: site was prepped using aseptic technique, ethochloride spray was applied and injection warnings given Injected: 80 mg of, DepoMedrol, with 8 mL of and 1% plain lidocaine Approach Used: anterolateral Procedure: The patient tolerated the procedure well and there was some relief with the local anesthesia Coding - Large joint Procedure code (CPT) selection complete Results Reviewed Results Reviewed: X-rays obtained in the office today and independently reviewed by me, Rj Brown PA-C, demonstrate moderate to severe patellofemoral arthritis of the right knee. Assessment & Plan Assessment & Plan (1) Patellofemoral arthritis of right knee: Code(s): M17.11 - Unilateral primary osteoarthritis, right knee Category: Medical Plan 1. Patellofemoral arthritis of right knee Patient was educated about this condition Patient is educated about the treatment options available Patient would like to proceed with steroid injection The risks and benefits of a steroid injection including but not limited to risk of damage to blood vessels, nerves, tendons, infection, skin bleaching, failure to improve symptoms, increased pain, and possible need for further injections or other intervention were discussed with the patient and the patient wishes to proceed with the steroid injection. Once consent was obtained, I aseptically prepped the area over the anterolateral joint line of the right knee. I then injected the area over the lateral epicondyle with a combination of 80 mg of dexamethasone and 8 mL of 1% lidocaine. The patient tolerated the procedure well with no complications. If the patient continues to experience symptoms over the following few weeks or months, they can make an appointment to return and discuss alternative treatment measures, such as physical therapy. Follow-up prn Orders: Orders XR knee RT 3V Today M17.11 - Unilateral primary osteoarthritis, right knee Coding Level of Care Code Est Pt Level 3 (31101) Diagnoses Patellofemoral arthritis of right knee M17.11 CPT Codes Coding - Large joint: 93235 - Large joint ([id number])
--- OUTSIDE RECORDS SUMMARY | 2024-10-21 10:12 | XMS_ITS | Clinical Summary ---
Author Organization [facility] Address [address] [place] [address] Care Team Providers Care Residential Appliance Repair Technician Name Role Phone Unavailable Primary Care Provider [...] hycardia) 11/16/2017 Overview (05/13/2024): Per records from [facility] Dr. Jane 03/26/13 - 48-hr Holter monitor: [...]
--- OUTSIDE RECORDS SUMMARY | 2024-10-21 10:12 | XMS_ITS | Clinical Summary ---
Author Organization [facility] Address [address] [place] [address] Care Team Providers Care Polytechnic Registrar Name Role Phone Vivian Hoffman NP Primary Care Provider [phone] Social History Tobacco Use Types Packs/Day Years Used Date Smoking Tobacco: Never Assessed Sex and Gender Information Value Date Recorded Sex Assigned at Female 11/17/2021 2:59 PM EDT Gender Identity Not on file Sexual Orientation Not on file Job Start Date Occupation Industry Not on file Not on file Not on file Plan of Treatment Not on file Care Teams Polytechnic Registrar Relationship Specialty Start Date End Date Vivian Hoffman NP [address] [place] [address] PCP - General Family Medicine 11/17/21
--- OUTSIDE RECORDS SUMMARY | 2024-10-21 10:12 | XMS_ITS | Clinical Summary ---
Author Organization [facility] Address [address] [place] [address] Phone Care Team Providers Care Railcar Foreman Name Role Phone Vivian Hoffman ABSORPTION PLANT OPERATOR HELPER Primary Care Provider [phone] Allergies No known active allergies Medications [...] 9:45 AM EST Office Visit Pulmonolgy - [place] [address] [facility] [address] [place] [phone] Arvind Jean MD [address] [facility] [address] [place] [address] Health Maintenance Due Date Last Done Comments [...] in either breast. BI-RADS 2-benign Sol Alejo [facility] IMG BI PROCEDURES Final Resul t * Pap smear (11/30/2022) 11/30/2022 Narrative HISTORICAL TESTING LAB RESULTING AGENCY - 12/09/2022 10:40 AM EDT [id number] THINPREP PAP, IMAGED: RARE ATYPICAL SQUAMOUS CELLS [...] NEG CYTOLOGY, + HPV, [Z01.419] Sol Alejo [facility] LAB CYTOLOGY ORDERABLES Final Result HISTORICAL TESTING LAB RESULTING AGENCY from Last 3 Months or Most Recently Relevant to Health Maintenance Insurance MEDICAID - [place] [employer] MEDICARE ADVANTAGE Care Teams Railcar Foreman Relationship Specialty Start Date End Date Vivian Hoffman NP [address] [place] [address] PCP - General Family Medicine 11/17/21
== END 2024-10-21 10:15 | disposition home or self-care (01) ==
LOC: HO.HOS 09:26
PROVIDERS: PCP Internal Medicine
DX: M17.11 Unilateral primary osteoarthritis, right knee (principal)
CPT/HCPCS: 20610; 99213

== ENCOUNTER → 2024-10-21 09:26 | Outpatient (BNV) | payer MEDICARE, MEDICAID, SELFPAY | PROVIDERS: Visit Provider Student in an Organized Health Care Education/Training Program | DX: M17.11 Unilateral primary osteoarthritis, right knee (principal) | CPT/HCPCS: 73562 ==

== ENCOUNTER 2024-12-09 08:15 | Outpatient (REF) | payer MEDICARE, MEDICAID, SELFPAY ==
--- OUTSIDE RECORDS SUMMARY | 2024-12-10 08:23 | XMS_ITS | Clinical Summary ---
Author Organization [address] [facility] Address [address] [place] [address] Phone Care Team Providers Care Instrument Worker Name Role Phone Vivian Hoffman TRAFFIC CONTROL FLAGGER Primary Care Provider [phone] Allergies No known active allergies Medications [...] 67 07/15/2024 4:02 PM EST Temperature 36.4 C (97.6 F) 07/15/2024 4:02 PM EST Respiratory Rate 20 07/15/2024 4:02 PM EST Oxygen Saturation 92% 07/15/2024 4:02 PM EST Inhaled Oxygen Concentration - - Weight 54.4 kg (120 lb) 07/15/2024 4:02 PM EST Height 160 cm (5' 3 ) 07/15/2024 4:02 PM EST Body Mass Index 21.26 07/15/2024 4:02 PM EST Plan of Treatment Upcoming Encounters Date Type Department Care Team (Late st Contact Info) Description 01/24/2025 10:00 AM EDT Office Visit Obstetrics and Gynecology - [address] [phone] Krys Neely CNM [address] [place] [address] 07/18/2025 9:45 AM EST Office Visit Pulmonolgy - [place] [address] [facility] [address] [place] [phone] Arvind Jean MD [address] [facility] [address] [place] [address] Health Maintenance Due Date Last Done Comments [...] o'clock position 6 cm from the nipple. Possible deformed implant. History of bilateral saline implants in 2009. History of a benign left excisional biopsy in 1998. Comparison: Mammography 04/09/2021 and as far back as 02/23/2012 Findings: Bilateral full-field digital diagnostic mammography was performed with tomosynthesis and interpreted with computer-aided detection. Implant and implant displaced views performed. Breast parenchyma is composed of scattered fibroglandular densities. No new suspicious mass, architectural distortion, or suspicious calcifications. Bilateral saline implants are intact and have similar appearance to the prior exam. Patient delineated the palpable right breast lump at the 2 o'clock position, 6 cm from the nipple. Sonography shows no solid or cystic lesion. Impression: No mammographic or sonographic correlate for the palpable right breast lump. Bilateral intact saline implants which have stable appearance. Further management of the palpable abnormality should be [...] RESULTING AGENCY - 12/09/2022 10:40 AM EDT [id number] THINPREP PAP, IMAGED: RARE ATYPICAL SQUAMOUS CELLS OF UNDETERMINED SIGNIFICANCE (ASCUS) . KAMINI JIMÉNEZ , CHELSEA(ASCP) (CASE SCREENED 12 08 2022) AMMY COPELAND M.D. , PATHOLOGIST (CASE ELECTRONICALLY SIGNED 12 09 2022) RESULT OF APTIMA HIGH RISK HPV ASSAY: HIGH RISK HPV: POSITIVE (SEROTYPES 16,18,31,33,35,39,45,51,52,56,58,59,66,68) RESULTS OF APTIMA HPV 16 AND 18/45 GENOTYPE ASSAY: HPV 16: NEGATIVE HPV 18/45: NEGATIVE COMPLETED ON 2022-12-05 ADEQUACY: SATISFACTORY ENDOCERVICAL/TRANSFORMATION ZONE COMPONENT PRESENT. SOURCE: THINPREP PAP HPV ANY DX: REFLEX 16 AND 18, CERVICAL, IMAGED CLINICAL INFORMATION: HPV ANY DIAGNOSIS. MENOPAUSE, PAP HX 05/20/2019 PAP SMEAR ASC-H HR HPV, 07/16/19 - COLPO BX NEG, PLAN REPEAT PAP IN 1 YR, 05/2020 PAP - NEG CYTOLOGY, + HPV, [Z01.419] Sol Alejo [facility] LAB CYTOLOGY ORDERABLES Final Result HISTORICAL TESTING LAB RESULTING AGENCY from Last 3 Months or Most Recently Relevant to Health Maintenance [place] [employer] MED[employer] ADVANTAGE Care Teams Instrument Worker Relationship Specialty Start Date End Date Vivian Hoffman NP [address] [place] [address] PCP - General Family Medicine 11/17/21
== END 2024-12-09 08:16 | disposition home or self-care (01) ==
LOC: HO.HOSX 08:15
DX: Z13.89 Encounter for screening for other disorder (principal)

== ENCOUNTER 2025-06-02 11:11 | Outpatient (AMB) | payer MEDICARE, MEDICAID, SELFPAY ==
--- NOTE | 2025-06-02 11:13 | MHC.OFFVIS ---
Vital Signs 06/02/25 11:14 Height 5 ft 3 in Weight 120 lb BMI 21.3 Intake Visit Reasons: OV-right knee OA, pain-follow up Intake Note: Charan is a 69 year old right hand dominant female who presents today for Follow Up of her Right Knee Patellofemoral Arthritis. She was last seen 10/21/24 where she was given a right knee steroid injection. States she is not sure if injection helped or not. She is open to getting another injection today but would alos like to discuss further treatment. Allergies seasonal Allergy (Unknown, Uncoded 06/02/25 11:19) runny nose HPI HPI OV-right knee OA, pain-follow up: Details: Charan is a 69 year old right hand dominant female who presents today for Follow Up of her Right Knee Patellofemoral Arthritis. She was last seen 10/21/24 where she was given a right knee steroid injection. States she is not sure if injection helped or not, as ?my pain is so bad that I can not even realize?. She is open to getting another injection today but would also like to discuss further treatment. 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 Physical Exam Vital Signs: BMI result Body Mass Index 21.3 Extrem Other: On inspection, there is no visible deformity of the right knee No edema, erythema, ecchymosis noted No lacerations, abrasions, open areas No evidence of infection Patient reports mild tenderness to palpation in the patella, peripatellar region, No tenderness to palpation of the medial and lateral joint line, posterior knee Patient is able to extend the left knee to 0 degrees and flex to approximately 120 degrees without difficulty No ligamentous laxity noted Distal sensation intact Capillary refill brisk Negative Andrew's Positive patellar grind Assessment & Plan Assessment & Plan (1) Patellofemoral arthritis of right knee: Code(s): M17.11 - Unilateral primary osteoarthritis, right knee Category: Medical Plan 1. Lateralization of right patella 2. Severe right patellofemoral arthritis Patient is educated about this condition Patient is educated about the typical treatment and recovery course At this time, patient is referred to physical therapy for range of motion and particularly strengthening of the right quad to help with patellar lateralization and hopefully reduce the patient's pain significantly Patient is educated that we can do a repeat injection PT is ineffective for pain management Patient understands this and is amenable to this plan Follow-up as needed Orders: Orders PT Evaluation and Treatment Today M17.11 - Unilateral primary osteoarthritis, right knee Coding Level of Care Code Est Pt Level 3 (21972) Diagnoses Patellofemoral arthritis of right knee M17.11
[2025-06-02 11:14] VITALS: BMI 21.3
== END 2025-06-02 11:38 | disposition home or self-care (01) ==
LOC: HO.HOS 11:12
DX: M17.11 Unilateral primary osteoarthritis, right knee (principal)
CPT/HCPCS: 99213

== ENCOUNTER → 2025-06-02 11:11 | Outpatient (BNVA) | payer MEDICARE, MEDICAID, SELFPAY | DX: M17.11 Unilateral primary osteoarthritis, right knee (principal) | CPT/HCPCS: 99212 ==